=== PATIENT | female | born 1945 | race Asian ===

== ENCOUNTER 2017-11-13 19:41 | Inpatient (IN) | payer MEDICARE, OTHER ==
[~2017-11-13] VITALS: Ht 149.9 cm; Wt 39.0 kg
[~2017-11-13 19:41] MED LIST: ASPI-825 PO; vitamins
[2017-11-13 20:22] VITALS: BP 125/73
[2017-11-13] MEDS ORDERED: DOCUSATE SODIUM 283 MG/5 ML MINI-ENEMA PR PRN (20:30)
[2017-11-13] MEDS ORDERED: ACETAMINOPHEN 325 MG TABLET PO PRN ×2 (20:30)
[2017-11-13] MEDS ORDERED: TEMAZEPAM 15 MG CAPSULE PO PRN (20:30)
[2017-11-13 21:54] VITALS: BP 125/73
[2017-11-13] MEDS: DOCUSATE SODIUM 100 MG CAPSULE PO SCH (21:55)
[2017-11-13] MEDS: SENNA 187 MG TABLET PO SCH (21:55)
[2017-11-13] MEDS: NEOMYCIN/POLYMYXIN B/DEXAMETH 5 ML OPHTHALMIC SUSPENSION OU SCH (21:55)
[2017-11-13 23:28] LABS: BILIRUBIN,URINE NEGATIVE (NEGATIVE); GLUCOSE, URINE (UA) 250 mg/dL (NEGATIVE); KETONES,URINE NEGATIVE (NEGATIVE); LEUKOCYTE ESTERASE ,URINE NEGATIVE (NEGATIVE); NITRATE,URINE NEGATIVE (NEGATIVE); OCCULT BLOOD,URINE LARGE (NEGATIVE); PH,URINE 5.5 (5.0-8.0); PROTEIN,URINE POS 1+ (NEGATIVE); UROBILINOGEN,URINE 0.2 mg/dL (<=1.0)
[2017-11-13 23:37] VITALS: BP 138/84
[2017-11-13 23:40] LABS: APPEARANCE,URINE HAZY (CLEAR)
[2017-11-13 23:47] LABS: BACTERIA,URINE Rare /HPF (None Seen); SQUAMOUS EPITHELIAL CELL,UR Few /LPF (None Seen)
[2017-11-14] MEDS ORDERED: ONDANSETRON HCL 4 MG TABLET PO PRN (02:00)
[2017-11-14] MEDS: NEOMYCIN/POLYMYXIN B/DEXAMETH 5 ML OPHTHALMIC SUSPENSION OU SCH ×3 (06:00→10:52)
[2017-11-14] MEDS ORDERED: ALENDRONATE SODIUM 35 MG TABLET PO SCH (06:30)
[2017-11-14 06:36] LABS: ALBUMIN 2.9 g/dL (3.4-5.0); BASOPHILS % (AUTO) 0.3 % (0.0-2.0); BILIRUBIN,TOTAL 0.4 mg/dL (0.1-1.0); CALCIUM, TOTAL 7.5 mg/dL (8.8-10.5); CREATININE 4.2 mg/dL (0.60-1.30); EOSINOPHILS % (AUTO) 1.2 % (1.0-6.0); HEMOGLOBIN 7.2 g/dL (12.0-16.0); LYMPHOCYTES # (AUTO) 0.5 K/uL (1.0-4.8); MEAN CORPUSCULAR HEMOGLOBIN 32.1 pg (26.0-34.0); MEAN CORPUSCULAR HGB CONC 34.6 G/dL (31.0-37.0); MEAN CORPUSCULAR VOLUME 93 fL (80-100); MONOCYTES # (AUTO) 0.7 K/uL (0.1-1.0); MONOCYTES % (AUTO) 8.7 % (2.0-9.0); NEUTROPHILS # (AUTO) 6.5 K/uL (1.8-7.7); NEUTROPHILS % (AUTO) 83.8 % (40.0-70.0); PLATELET COUNT (AUTO) 219 K/uL (150-450); POTASSIUM 3.9 mmol/L (3.5-5.1); RED BLOOD CELL COUNT(AUTO) 2.23 MIL/uL (4.00-5.20); TOTAL PROTEIN, SERUM 4.4 g/dL (6.4-8.2)
[2017-11-14 07:58] VITALS: BP 161/72
[2017-11-14] MEDS: DOCUSATE SODIUM 100 MG CAPSULE PO SCH ×2 (08:21→22:17)
[2017-11-14] MEDS: FAMOTIDINE 20 MG TABLET PO SCH (08:21)
[2017-11-14] MEDS: ASPIRIN 81 MG CHEWABLE TABLET PO SCH (08:21)
[2017-11-14] MEDS: PredniSONE 20 MG TABLET PO SCH (08:21)
[2017-11-14] MEDS: ATORVASTATIN CALCIUM 10 MG TABLET PO SCH (08:21)
[2017-11-14] MEDS: NIFEdipine 60 MG ER TABLET PO SCH ×2 (08:22→22:16)
[2017-11-14] MEDS: CALCIUM OYSTER SHELL 250 MG-VIT D3 125 UNITS TABLET PO SCH (08:22)
[2017-11-14 08:58] VITALS: BP 161/73
[2017-11-14] MEDS ORDERED: SULFAMETHOX/TRIMETH DS 800-160 MG/TABLET PO SCH (09:00)
[2017-11-14] MEDS ORDERED: EPOETIN ALFA 10,000 UNITS/ML VIAL SQ SCH (09:00)
[2017-11-14] MEDS ORDERED: DEXTROSE 50%-WATER 25 GM/50 ML SYRINGE IVP PRN (09:00)
[2017-11-14] MEDS ORDERED: INSULIN LISPRO 100 UNITS/ML SQ PRN (09:00)
[2017-11-14 09:19] LABS: HEMOGLOBIN A1C 4.7 % (4.5-6.2)
[2017-11-14 09:33] LABS: CHOL/HDL RATIO 1.9 (3.9-5.7); THYROID STIMULATING HORMONE 2.41 uIU/mL (0.36-3.74)
[2017-11-14] MEDS ORDERED: OMEPRAZOLE 20 MG CAPSULE PO SCH (12:45)
[2017-11-14 15:20] VITALS: BP 138/77
[2017-11-14 17:42] LABS: GLUCOMETER DEV NAME(LOC) 2WR 1B; GLUCOSE,POINT OF CARE 146 MG/DL (70-110)
[2017-11-14 22:00] VITALS: BP 132/70
[2017-11-14] MEDS: SENNA 187 MG TABLET PO SCH (22:13)
[2017-11-14] MEDS: RisperiDONE 0.5 MG TABLET PO SCH (22:13)
[2017-11-14] MEDS: MINERAL OIL/PETROLATUM,WHITE PF 3.5 GM OPHTHALMIC OINTMENT OU SCH (22:15)
[2017-11-15 00:30] VITALS: BP 120/63
[2017-11-15 06:11] LABS: BASOPHILS % (AUTO) 0.3 % (0.0-2.0); EOSINOPHILS % (AUTO) 2.5 % (1.0-6.0); HEMATOCRIT 23.5 % (36-46); LYMPHOCYTES # (AUTO) 0.6 K/uL (1.0-4.8); LYMPHOCYTES % (AUTO) 7.3 % (22.0-44.0); MEAN CORPUSCULAR HEMOGLOBIN 32.3 pg (26.0-34.0); MEAN CORPUSCULAR HGB CONC 34.2 G/dL (31.0-37.0); MEAN CORPUSCULAR VOLUME 95 fL (80-100); MONOCYTES # (AUTO) 0.6 K/uL (0.1-1.0); MONOCYTES % (AUTO) 6.8 % (2.0-9.0); NEUTROPHILS # (AUTO) 7.2 K/uL (1.8-7.7); NEUTROPHILS % (AUTO) 83.1 % (40.0-70.0); PLATELET COUNT (AUTO) 251 K/uL (150-450); RED BLOOD CELL COUNT(AUTO) 2.48 MIL/uL (4.00-5.20); RED CELL DISTRIBUTION WIDTH 18.1 % (11.5-14.5)
[2017-11-15 06:26] LABS: CALCIUM, TOTAL 7.9 mg/dL (8.8-10.5); CREATININE 4.63 mg/dL (0.60-1.30); MAGNESIUM 1.6 mg/dL (1.80-2.40); PHOSPHORUS 2.7 mg/dL (2.5-4.9)
[2017-11-15 06:29] LABS: % IRON SATURATION 27.1 % (22-44)
[2017-11-15] MEDS ORDERED: ALENDRONATE SODIUM 35 MG TABLET PO ONE (06:30)
[2017-11-15 06:32] LABS: GLUCOMETER DEV NAME(LOC) 2WR 1B; GLUCOSE,POINT OF CARE 79 MG/DL (70-110)
[2017-11-15] MEDS: ASPIRIN 81 MG CHEWABLE TABLET PO SCH (07:39)
[2017-11-15] MEDS: DOCUSATE SODIUM 100 MG CAPSULE PO SCH ×2 (07:39→20:41)
[2017-11-15] MEDS: PredniSONE 20 MG TABLET PO SCH (07:39)
[2017-11-15] MEDS: NIFEdipine 60 MG ER TABLET PO SCH ×2 (07:40→20:41)
[2017-11-15] MEDS: ATORVASTATIN CALCIUM 10 MG TABLET PO SCH (07:40)
[2017-11-15] MEDS: FAMOTIDINE 20 MG TABLET PO SCH (07:40)
[2017-11-15] MEDS: RisperiDONE 0.5 MG TABLET PO SCH (07:41)
[2017-11-15] MEDS: MINERAL OIL/PETROLATUM,WHITE PF 3.5 GM OPHTHALMIC OINTMENT OU SCH ×4 (07:41→20:41)
[2017-11-15 07:53] VITALS: BP 131/67
[2017-11-15] MEDS: EPOETIN ALFA 10,000 UNITS/ML VIAL SQ SCH (09:18)
[2017-11-15] MEDS: CALCIUM OYSTER SHELL 250 MG-VIT D3 125 UNITS TABLET PO SCH (09:27)
[2017-11-15] MEDS ORDERED: SODIUM CHLORIDE 0.9% 2,000 ML IV ONE (13:57)
[2017-11-15 15:30] VITALS: BP 136/77
[2017-11-15] MEDS ORDERED: HEPARIN SODIUM,PORCINE 1,000 UNITS/ML VIAL IVP ONE ×3 (16:30→17:48)
[2017-11-15] MEDS ORDERED: MANNITOL 25%-12.5 GM/50 ML VIAL IVP PRN (16:30)
[2017-11-15] MEDS: SULFAMETHOX/TRIMETH DS 800-160 MG/TABLET PO SCH (18:45)
[2017-11-15] MEDS: MUPIROCIN CALCIUM 2% 22 GM OINTMENT NASAL SCH (20:41)
[2017-11-15] MEDS: SENNA 187 MG TABLET PO SCH (20:41)
[2017-11-15 20:42] VITALS: BP 150/70
[2017-11-16 01:07] VITALS: BP 146/76
[2017-11-16 03:17] LABS: GLUCOMETER DEV NAME(LOC) 2WR 1B; GLUCOSE,POINT OF CARE 113 MG/DL (70-110)
[2017-11-16 06:12] LABS: GLUCOMETER DEV NAME(LOC) 2WR 2E; GLUCOSE,POINT OF CARE 82 MG/DL (70-110)
[2017-11-16 06:42] LABS: BASOPHILS % (AUTO) 0.3 % (0.0-2.0); EOSINOPHILS % (AUTO) 3.9 % (1.0-6.0); HEMATOCRIT 23.6 % (36-46); HEMOGLOBIN 8.2 g/dL (12.0-16.0); LYMPHOCYTES # (AUTO) 0.7 K/uL (1.0-4.8); LYMPHOCYTES % (AUTO) 8.1 % (22.0-44.0); MEAN CORPUSCULAR HEMOGLOBIN 32.7 pg (26.0-34.0); MEAN CORPUSCULAR HGB CONC 34.8 G/dL (31.0-37.0); MEAN CORPUSCULAR VOLUME 94 fL (80-100); MONOCYTES # (AUTO) 0.6 K/uL (0.1-1.0); MONOCYTES % (AUTO) 7.1 % (2.0-9.0); NEUTROPHILS # (AUTO) 7.3 K/uL (1.8-7.7); NEUTROPHILS % (AUTO) 80.6 % (40.0-70.0); PLATELET COUNT (AUTO) 266 K/uL (150-450); RED BLOOD CELL COUNT(AUTO) 2.51 MIL/uL (4.00-5.20); RED CELL DISTRIBUTION WIDTH 18.1 % (11.5-14.5)
[2017-11-16 07:06] LABS: CALCIUM, TOTAL 8.3 mg/dL (8.8-10.5); CREATININE 2.27 mg/dL (0.60-1.30); MAGNESIUM 1.3 mg/dL (1.80-2.40); PHOSPHORUS 2.2 mg/dL (2.5-4.9); POTASSIUM 3.5 mmol/L (3.5-5.1)
[2017-11-16 07:30] VITALS: BP 136/64
[2017-11-16] MEDS ORDERED: MAGNESIUM OXIDE 400 MG TABLET PO ONE (07:45)
[2017-11-16] MEDS: ATORVASTATIN CALCIUM 10 MG TABLET PO SCH (07:55)
[2017-11-16] MEDS: PredniSONE 20 MG TABLET PO SCH (07:56)
[2017-11-16] MEDS: CALCIUM OYSTER SHELL 250 MG-VIT D3 125 UNITS TABLET PO SCH (07:56)
[2017-11-16] MEDS: ASPIRIN 81 MG CHEWABLE TABLET PO SCH (07:56)
[2017-11-16] MEDS: MUPIROCIN CALCIUM 2% 22 GM OINTMENT NASAL SCH ×2 (07:56→20:11)
[2017-11-16] MEDS: NIFEdipine 60 MG ER TABLET PO SCH ×2 (07:56→20:11)
[2017-11-16] MEDS: SULFAMETHOX/TRIMETH DS 800-160 MG/TABLET PO SCH (07:56)
[2017-11-16] MEDS: FAMOTIDINE 20 MG TABLET PO SCH (07:57)
[2017-11-16] MEDS: MINERAL OIL/PETROLATUM,WHITE PF 3.5 GM OPHTHALMIC OINTMENT OU SCH ×4 (07:58→20:11)
[2017-11-16] MEDS: DOCUSATE SODIUM 100 MG CAPSULE PO SCH ×2 (08:02→20:12)
[2017-11-16] MEDS ORDERED: FUROSEMIDE 40 MG/4 ML VIAL IVP ONE (08:45)
[2017-11-16] MEDS ORDERED: FUROSEMIDE 40 MG TABLET PO ONE (09:30)
[2017-11-16 15:39] VITALS: BP 129/56
[2017-11-16 17:48] LABS: GLUCOMETER DEV NAME(LOC) 2WR 1B; GLUCOSE,POINT OF CARE 126 MG/DL (70-110)
[2017-11-16] MEDS ORDERED: FAMO20 PO (18:25)
[2017-11-16] MEDS ORDERED: ATOR10TA84 PO (18:29)
[2017-11-16] MEDS ORDERED: OSCD250 PO (18:29)
[2017-11-16] MEDS ORDERED: ASPI81 PO (18:29)
[2017-11-16] MEDS ORDERED: DSS100 PO (18:29)
[2017-11-16 20:00] VITALS: BP 131/59
[2017-11-16] MEDS: SENNA 187 MG TABLET PO SCH (20:12)
[2017-11-17] VITALS: BP 140/68
[2017-11-17 06:08] LABS: GLUCOMETER DEV NAME(LOC) 2WR 1B; GLUCOSE,POINT OF CARE 82 MG/DL (70-110)
[2017-11-17] MEDS ORDERED: D5050I IVP (07:32)
[2017-11-17] MEDS ORDERED: EPOE10003 SQ (07:32)
[2017-11-17] MEDS ORDERED: SENN-175 PO (07:32)
[2017-11-17] MEDS ORDERED: DOCU283E PR (07:32)
[2017-11-17] MEDS ORDERED: ACET-784 PO (07:32)
[2017-11-17] MEDS ORDERED: MUPI15CR NASAL (07:32)
[2017-11-17] MEDS ORDERED: [UNRECOGNIZED DRUG - CODE] OU (07:32)
[2017-11-17] MEDS ORDERED: SULF1TAB42 PO (07:32)
[2017-11-17] MEDS ORDERED: PRED20 PO (07:32)
[2017-11-17] MEDS ORDERED: NIFE60TA71 PO (07:32)
[2017-11-17] MEDS ORDERED: ONDA4 PO (07:41)
[2017-11-17] MEDS ORDERED: TEMA15CA PO (07:41)
[2017-11-17] MEDS ORDERED: INSU100V SQ (07:41)
[2017-11-17 07:59] VITALS: BP 141/60
[2017-11-17 08:00] LABS: CALCIUM, TOTAL 7.6 mg/dL (8.8-10.5); CREATININE 3.15 mg/dL (0.60-1.30); MAGNESIUM 1.5 mg/dL (1.80-2.40); PHOSPHORUS 2.2 mg/dL (2.5-4.9); POTASSIUM 3.8 mmol/L (3.5-5.1)
[2017-11-17] MEDS: FAMOTIDINE 20 MG TABLET PO SCH (08:08)
[2017-11-17] MEDS: ATORVASTATIN CALCIUM 10 MG TABLET PO SCH (08:09)
[2017-11-17] MEDS: SULFAMETHOX/TRIMETH DS 800-160 MG/TABLET PO SCH (08:09)
[2017-11-17] MEDS: PredniSONE 20 MG TABLET PO SCH (08:09)
[2017-11-17] MEDS: ASPIRIN 81 MG CHEWABLE TABLET PO SCH (08:09)
[2017-11-17] MEDS: CALCIUM OYSTER SHELL 250 MG-VIT D3 125 UNITS TABLET PO SCH (08:09)
[2017-11-17] MEDS: NIFEdipine 60 MG ER TABLET PO SCH ×2 (08:09→20:10)
[2017-11-17] MEDS: DOCUSATE SODIUM 100 MG CAPSULE PO SCH ×2 (08:09→20:10)
[2017-11-17] MEDS: FUROSEMIDE 40 MG TABLET PO SCH (08:10)
[2017-11-17] MEDS: MUPIROCIN CALCIUM 2% 22 GM OINTMENT NASAL SCH ×2 (08:10→20:09)
[2017-11-17] MEDS: MINERAL OIL/PETROLATUM,WHITE PF 3.5 GM OPHTHALMIC OINTMENT OU SCH ×4 (08:10→20:09)
[2017-11-17] MEDS: EPOETIN ALFA 10,000 UNITS/ML VIAL SQ SCH (09:56)
[2017-11-17] MEDS ORDERED: MAGNESIUM OXIDE 400 MG TABLET PO ONE (14:15)
[2017-11-17 15:00] VITALS: BP 152/71
[2017-11-17] MEDS ORDERED: SODIUM CHLORIDE 0.9% 2,000 ML IV ONE (15:00)
[2017-11-17] MEDS ORDERED: HEPARIN SODIUM,PORCINE 1,000 UNITS/ML VIAL IVP ONE (16:47)
[2017-11-17 17:48] LABS: GLUCOMETER DEV NAME(LOC) 2WR 1B; GLUCOSE,POINT OF CARE 119 MG/DL (70-110)
[2017-11-17 20:00] VITALS: BP 150/73
[2017-11-17] MEDS: SENNA 187 MG TABLET PO SCH (20:10)
[2017-11-18 01:04] VITALS: BP 128/65
[2017-11-18] MEDS ORDERED: FURO40 PO (02:48)
[2017-11-18] MEDS ORDERED: ALEN35TA32 PO (02:48)
[2017-11-18 06:08] LABS: GLUCOMETER DEV NAME(LOC) 2WR 2E; GLUCOSE,POINT OF CARE 88 MG/DL (70-110)
[2017-11-18] MEDS: DOCUSATE SODIUM 100 MG CAPSULE PO SCH (07:44)
[2017-11-18] MEDS: MUPIROCIN CALCIUM 2% 22 GM OINTMENT NASAL SCH (07:44)
[2017-11-18] MEDS: MINERAL OIL/PETROLATUM,WHITE PF 3.5 GM OPHTHALMIC OINTMENT OU SCH ×2 (07:45→14:10)
[2017-11-18] MEDS: FAMOTIDINE 20 MG TABLET PO SCH (07:45)
[2017-11-18] MEDS: ASPIRIN 81 MG CHEWABLE TABLET PO SCH (07:45)
[2017-11-18] MEDS: FUROSEMIDE 40 MG TABLET PO SCH (07:45)
[2017-11-18] MEDS: SULFAMETHOX/TRIMETH DS 800-160 MG/TABLET PO SCH (07:45)
[2017-11-18] MEDS: PredniSONE 20 MG TABLET PO SCH (07:45)
[2017-11-18] MEDS: NIFEdipine 60 MG ER TABLET PO SCH (07:45)
[2017-11-18] MEDS: CALCIUM OYSTER SHELL 250 MG-VIT D3 125 UNITS TABLET PO SCH (07:45)
[2017-11-18] MEDS: ATORVASTATIN CALCIUM 10 MG TABLET PO SCH (07:45)
[2017-11-18 08:02] VITALS: BP 149/66
[2017-11-21] MEDS ORDERED: ALENDRONATE SODIUM 35 MG TABLET PO SCH (06:30)
== END 2017-11-18 15:30 | DRG 64 ==
LOC: 2WR 19:49
PROVIDERS: ADMIT Physical Medicine & Rehabilitation; ATTEND Physical Medicine & Rehabilitation
DX: I63.9 Cerebral infarction, unspecified (principal); N17.0 Acute kidney failure with tubular necrosis; G93.41 Metabolic encephalopathy; E46 Unspecified protein-calorie malnutrition; I13.2 Hypertensive heart and chronic kidney disease with heart failure and with stage 5 chronic kidney disease, or end stage renal disease; N18.6 End stage renal disease; I50.9 Heart failure, unspecified; E11.22 Type 2 diabetes mellitus with diabetic chronic kidney disease; E83.39 Other disorders of phosphorus metabolism; D64.9 Anemia, unspecified; E83.42 Hypomagnesemia; F32.9 Major depressive disorder, single episode, unspecified; H01.009 Unspecified blepharitis unspecified eye, unspecified eyelid; H04.129 Dry eye syndrome of unspecified lacrimal gland; M19.90 Unspecified osteoarthritis, unspecified site; I77.6 Arteritis, unspecified; N05.7 Unspecified nephritic syndrome with diffuse crescentic glomerulonephritis; Z86.73 Personal history of transient ischemic attack (TIA), and cerebral infarction without residual deficits; Z99.2 Dependence on renal dialysis; Z22.322 Carrier or suspected carrier of Methicillin resistant Staphylococcus aureus
CPT/HCPCS: 80074; 83036; 83540; 83550; 83735; 84100; 84443; 84681; 87081; 90935; 92507; 92508; 92523; 97110; 97116; 97163; 97166; 97530; 97535; 99366; J0885; J1644; J1940; J7030